=== PATIENT | male | born 1990 | race Caucasian/White ===

== ENCOUNTER 2019-04-20 19:49 | Emergency (ER) | payer SELFPAY ==
[2019-04-20 20:15] VITALS: BP 124/82; PULSE 80; TEMP 100.4; BMI 21.7
--- NOTE | 2019-04-20 21:15 | PDOC ---
*Physical Exam - Vital Signs Last Vital Signs Temp Pulse Resp BP Pulse Ox 100.4 F H 80 18 124/82 99 04/20/19 20:12 04/20/19 20:12 04/20/19 20:12 04/20/19 20:12 04/20/19 20:12 Medical Decision Making - Medical Decision Making 04/20/19 21:15 Patient seen by the advanced practice provider under my direct supervision. Ancillary testing reviewed as necessary. I agree with plan as outlined by the advanced practice provider. Discharge - Discharge Information Problems reviewed: Yes Clinical Impression/Diagnosis: Viral syndrome Condition: Stable Disposition: HOME - Follow up/Referral - Patient Discharge Instructions Additional Instructions: Rest, drink lots of fluids: Teas, water, soups, Pedialyte Saltwater gargles Steamy showers/seem to face break up mucus Avoid contact with others until fevers and cough resolved Lots of handwashing and good hygiene Continue [id number] medications for symptomatic relief Tylenol or Motrin for fever and pain Followup with private physician in one to 2 days as needed Return to emergency department for worsened symptoms, fevers, dehydration - Post Discharge Activity Work/Back to School Note: Parent(s) Back to Work Note
[2019-04-20] MEDS ORDERED: ACETAMINOPHEN 500 MG TABLET (FP) PO ONE (21:34)
--- NOTE | 2019-04-20 21:37 | PDOC ---
History of Present Illness - General Chief Complaint: Cold Symptoms Stated Complaint: FEVER Time Seen by Provider: 04/20/19 21:14 History Source: Patient Exam Limitations: No Limitations - History of Present Illness Initial Comments: 04/20/19 21:34 HISTORY OF PRESENT ILLNESS: 28-year-old male who presents emergency department for evaluation of 4 days of fevers, arthralgia, sore throat, moist productive cough. He denies any chest pain, shortness of breath, abdominal pain, nausea, vomiting, diarrhea, rectal bleeding, dysuria or hematuria. No recent travel or sick contacts. PAST MEDICAL HISTORY: Denies past medical history SURGICAL HISTORY: Denies ALLERGIES: No known drug allergies REVIEW OF SYSTEMS General/Constitutional: +fever. Denies weakness, weight change. HEENT: Denies change in vision. Denies ear pain or discharge. +sore throat. Cardiovascular: Denies chest pain or shortness of breath. Respiratory: Moist productive cough. Denies wheezing, or hemoptysis. Gastrointestinal: Denies nausea, vomiting, diarrhea or constipation. Denies rectal bleeding. Genitourinary: Denies dysuria, frequency, or change in urination. Musculoskeletal: +myalgias. Denies neck or back pain. Skin and breasts: Denies rash or easy bruising. Neurologic: Denies headache, vertigo, loss of consciousness, or loss of sensation. Psychiatric: Denies depression or anxiety. Endocrine: Denies increased thirst. Denies abnormal weight change. Hematologic/Lymphatic: Denies anemia, easy bleeding, or history of blood clots. Allergic/Immunologic: Denies hives or skin allergy. Denies latex allergy. PHYSICAL EXAM General Appearance: Well-appearing, appropriately dressed. No apparent distress , no intoxication. HEENT: EOMI, PERRLA, normal voice, TMs retracted bilaterally. No conjunctival pallor. No photophobia, scleral icterus. Oropharynx beefy red without lesions and trace exudate. Cobblestoning noted in the posterior. No nasal discharge present. Neck: Supple. Trachea midline. No tenderness, rigidity, carotid bruit, stridor , or thyromegaly. Nontender anterior cervical lymphadenopathy present. Respiratory/Chest: Lungs CTAB. No shortness of breath, chest tenderness, respiratory distress, accessory muscle use. No crackles, rales, rhonchi, stridor , wheezing, dullness Cardiovascular: RRR. S1, S2. No JVD, murmur, bradycardia, tachycardia. Vascular Pulses: Dorsalis-Pedis (R): 2+, Dorsalis-Pedis (L): 2+ Gastrointestinal/Abdominal: Normal bowel sounds. Abdomen soft, non-distended. No tenderness or rebound tenderness. No organomegaly, pulsatile mass, guarding, hernia, hepatomegaly, splenomegaly. Musculoskeletal/Extremities: Normal inspection. FROM of all extremities, normal capillary refill. Pelvis Stable. No CVA tenderness. No tenderness to extremities, pedal edema, swelling, erythema or deformity. Integumentary: Appropriate color, dry, warm. No cyanosis, erythema, jaundice or rash Neurologic: cook helper pastry II-XII intact. Fully oriented, alert. Appropriate mood/affect. Motor strength 5/5. No appreciable EOM palsy, facial droop or sensory deficit. 04/20/19 21:36 Past History - Past Medical History CVA: No COPD: No Other medical history: recurrent kidney infections - Psycho Social/Smoking Cessation Hx Smoking History: Former smoker Have you smoked in the past 12 months: Yes Number of Cigarettes Smoked Daily: 10 Information on smoking cessation initiated: No Hx Alcohol Use: No Drug/Substance Use Hx: Yes *Physical Exam - Vital Signs Last Vital Signs Temp Pulse Resp BP Pulse Ox 100.4 F H 80 18 124/82 99 04/20/19 20:12 04/20/19 20:12 04/20/19 20:12 04/20/19 20:12 04/20/19 20:12 Medical Decision Making - Medical Decision Making 04/20/19 21:35 A/P: 28-year-old male 4 days of flulike symptoms Beefy red oropharynx with trace exudates present bilaterally Viral illness versus streptococcal pharyngitis Tylenol 1 g orally now Rapid strep testing Reassess 04/20/19 22:39 Group A strep is negative. Symptoms are likely due to viral illness. As patient is outside the window to treat for influenza I defer testing at this time. Supportive treatment of symptoms has been discussed with the patient was verbalized understanding of discharge instructions. Discharge - Discharge Information Problems reviewed: Yes Clinical Impression/Diagnosis: Viral syndrome Condition: Stable Disposition: HOME - Admission No - Follow up/Referral - Patient Discharge Instructions Additional Instructions: Rest, drink lots of fluids: Teas, water, soups, Pedialyte Saltwater gargles Steamy showers/seem to face break up mucus Avoid contact with others until fevers and cough resolved Lots of handwashing and good hygiene Continue [id number] medications for symptomatic relief Tylenol or Motrin for fever and pain Followup with private physician in one to 2 days as needed Return to emergency department for worsened symptoms, fevers, dehydration - Post Discharge Activity
[2019-04-20] MEDS ORDERED: ACETAMINOPHEN 325 MG TABLET (FP) ONE (22:02)
== END 2019-04-20 23:51 | disposition home or self-care (01) ==
LOC: JER 19:49
DX: B34.9 Viral infection, unspecified (principal); Z87.891 Personal history of nicotine dependence
CPT/HCPCS: 87070; 87880; 99281-25